=== PATIENT | female | born 1955 | race Caucasian/White ===

== ENCOUNTER 2021-06-04 17:15 | Emergency (ER) | payer OTHER, MEDICARE ==
[~2021-06-04] VITALS: Ht 175.3 cm; Wt 79.8 kg
[2021-06-04] MEDS ORDERED: TRAMADOL HCL 50 MG TABLET PO ONE (18:00)
[2021-06-04 18:06] VITALS: BP 122/71
[2021-06-04] MEDS ORDERED: TRAMADOL HCL 50 MG TABLET ONE (18:09)
--- NOTE | 2021-06-04 18:10 | NUR ---
BIBS FOR RIGHT KNEE PAIN,TRIPPED/FELL LAST NIGHT. RATES PAIN 5/10. WILL CONTINUE TO MONITOR THE PATIENT.
[2021-06-04] MEDS ORDERED: TRAM50TA2 PO (18:40)
[2021-06-04] MEDS ORDERED: ACET-2605 PO (18:40)
[2021-06-04] MEDS ORDERED: BACI30OI9 TP (18:41)
--- NOTE | 2021-06-04 19:13 | NUR ---
Patient discharged to home in stable condition. Written and verbal after care instructions given. Patient verbalizes understanding of instruction.
== END 2021-06-04 19:13 | disposition home or self-care (01) ==
LOC: ER 17:28
DX: S80.211A Abrasion, right knee, initial encounter (principal); M79.7 Fibromyalgia; Z60.2 Problems related to living alone; Z88.0 Allergy status to penicillin; Z79.899 Other long term (current) drug therapy; W01.0XXA Fall on same level from slipping, tripping and stumbling without subsequent striking against object, initial encounter; Y93.01 Activity, walking, marching and hiking; Y92.89 Other specified places as the place of occurrence of the external cause; Y99.8 Other external cause status
CPT/HCPCS: 73564-TC